=== PATIENT | female | born 1970 | race Two or more races ===

== ENCOUNTER 2020-09-16 15:49 | Emergency (ER) | payer OTHER ==
[~2020-09-16] VITALS: Ht 152.4 cm; Wt 74.0 kg
--- NOTE | 2020-09-16 16:56 | NUR ---
PT BIB BOYFRIEND VIA POV. PER PT SHE IS HAVING EPIGASTRIC PAIN STARTING THIS MORNING, PAIN IS 6/10 AT THIS TIME, PT ALSO REPORTING NAUSEA BUT NO VOMITTING. PT RESTING IN [facility], MONITORING IN PLACE, BOYFRIEND AT BEDSIDE, JUMANA AT THIS TIME, WCJUDI.
[2020-09-16] MEDS ORDERED: MAALOX/HYOSCYAMINE/LIDOCAINE 45 ML BTL PO ONE (17:30)
[2020-09-16] MEDS ORDERED: MAALOX/HYOSCYAMINE/LIDOCAINE 45 ML BTL ONE (17:32)
[2020-09-16 18:03] LABS: ALANINE AMINOTRANSFERASE 26 U/L (12-78); ALBUMIN 3.7 g/dL (3.4-5.0); ANION GAP 4 mmol/L (5-15); CALCIUM 9.1 mg/dL (8.5-10.1); CHLORIDE 108 mmol/L (98-107); CREATININE 0.78 mg/dL (0.55-1.02)
--- NOTE | 2020-09-16 18:04 | NUR ---
PT RESTING IN [facility], MEDICATED PER EMAR, BOYFRIEND AT BEDSIDE, MONITORING IN PLACE, NADN AT THIS TIME, WCTM.
[2020-09-16 18:05] LABS: ALKALINE PHOSPHATASE 99 U/L (45-117); BASOPHILS % (AUTO) 1 % (0-1); BILIRUBIN,TOTAL 0.2 mg/dL (0.2-1.0); EOSINOPHILS % (AUTO) 2 % (1-7); LYMPHOCYTES % (AUTO) 26 % (22-44); MEAN CORPUSCULAR HEMOGLOBIN 28.6 pg (27.0-34.8); MEAN CORPUSCULAR HGB CONC 33.6 g/dL (32.4-35.8); MEAN PLATELET VOLUME 9.4 fL (7.4-10.4); MONOCYTES % (AUTO) 7 % (2-9); NEUTROPHILS % (AUTO) 65 % (42-75); PLATELET COUNT 217 x10^3/uL (130-400); RED BLOOD COUNT 4.98 x10^6/uL (3.82-5.3); RED CELL DISTRIBUTION WIDTH 14.3 % (9.6-15.2); TOTAL PROTEIN 7.7 g/dL (6.4-8.2)
[2020-09-16 18:10] LABS: MD NO
[2020-09-16 18:54] VITALS: BP 120/69
== END 2020-09-16 19:45 | disposition home or self-care (01) ==
LOC: ED 19:00
DX: K80.20 Calculus of gallbladder without cholecystitis without obstruction (principal); R10.11 Right upper quadrant pain; R10.13 Epigastric pain; R11.2 Nausea with vomiting, unspecified; R94.31 Abnormal electrocardiogram [ECG] [EKG]
CPT/HCPCS: 36415; 76700; 80053; 83605; 83690; 85025; 93005; 99285

== ENCOUNTER 2021-05-24 08:31 | Emergency (ER) | payer OTHER ==
[~2021-05-24] VITALS: Ht 165.1 cm; Wt 73.0 kg
[2021-05-24 11:47] VITALS: BP 109/70
== END 2021-05-24 12:39 | disposition home or self-care (01) ==
LOC: ED 08:56
DX: R55 Syncope and collapse (principal); E11.65 Type 2 diabetes mellitus with hyperglycemia; R42 Dizziness and giddiness; R11.0 Nausea
CPT/HCPCS: 36415; 71045; 80053; 81003; 82010; 82800; 82962; 85025; 93005; 96360; 96361; 99285; J1815; J7030